=== PATIENT | female | born 1945 | race Caucasian/White ===

== ENCOUNTER → 2016-05-07 | Outpatient (CLI) | payer OTHER ==
[~2016-05-07] MED LIST: ALPR0.254 PO; ASPI81TA13 PO; CALC667C PO; DONETAB5 PO; DULO30CA PO; LEVO125T6 PO; LOSA25TA9 PO; METO25TA5 PO; OMEP20CA5 OR; SIMV-13 PO
[2016-05-07 10:29] LABS: Basophils # (auto) 0.1 uL; Basophils % (auto) 0.9 % (0.0-2.0); Eosinophils # (auto) 0.2 uL; Eosinophils % (auto) 3.8 % (0.0-7.0); Hematocrit 39.4 % (36.0-46.0); Hemoglobin 12.7 g/dL (12.2-16.2); Lymphocytes # (auto) 1.5 uL; Lymphocytes % (auto) 25.3 % (10.0-50.0); Mean Corpuscular Hemoglobin 30.6 pg (28.0-32.0); Mean Corpuscular Hgb Conc. 32.3 g/dL (32.0-36.0); Mean Corpuscular Volume 94.8 fL (80.0-100.0); Mean Platelet Volume 8.2 fL (7.4-10.4); Monocytes # (auto) 0.5 uL; Monocytes % (auto) 8.2 % (0.0-12.0); Neutrophils # (auto) 3.7 uL; Neutrophils % (auto) 61.8 % (37.0-80.0); Platelet Count (auto) 193 10^3/uL (140-450); Red Cell Distribution Width 13.2 % (11.6-16.0)
[2016-05-07 11:03] LABS: BUN/Creatinine Ratio 26.1; Bilirubin, Total 0.5 mg/dL (0.2-1.0); Calcium 9.3 mg/dL (8.5-10.1); Potassium 3.7 mmol/L (3.5-5.1); Total Protein 7.6 g/dL (6.4-8.2)
[2016-05-07 12:15] LABS: Urine Bilirubin Negative (Negative); Urine Blood Negative /uL (Negative); Urine Color Yellow (Yellow); Urine Glucose Normal (Normal); Urine Ketone Negative (Negative); Urine Mucus FEW (None Seen); Urine Nitrite Negative (Negative); Urine RBC 11 /hpf (0 - 4); Urine Squamous Epithelial Cell FEW /hpf (<5); Urine pH 5.5 (5.0-8.0)
== END | disposition home or self-care (01) ==
LOC: LAB 09:00
PROVIDERS: ATTEND Internal Medicine
DX: Z00.00 Encounter for general adult medical examination without abnormal findings (principal); E55.9 Vitamin D deficiency, unspecified
CPT/HCPCS: 36415; 80053; 80061; 81001; 82306; 82607; 84443; 85025; 86592

== ENCOUNTER 2016-06-16 08:51 | Emergency (ER) | payer OTHER ==
[~2016-06-16] VITALS: Ht 175.3 cm; Wt 68.9 kg
[2016-06-16 08:58] VITALS: BP 134/87
[2016-06-16] MEDS ORDERED: LACTULOSE 20Gm/30ML SOLN PO ONE (10:00)
== END 2016-06-16 10:30 | disposition home or self-care (01) ==
LOC: ER 08:59
DX: K59.00 Constipation, unspecified (principal); E78.5 Hyperlipidemia, unspecified; I10 Essential (primary) hypertension; E07.9 Disorder of thyroid, unspecified; Z87.440 Personal history of urinary (tract) infections; Z90.49 Acquired absence of other specified parts of digestive tract
CPT/HCPCS: 74022

== ENCOUNTER 2016-06-24 03:06 | Emergency (ER) | payer OTHER ==
[~2016-06-24] VITALS: Ht 175.3 cm; Wt 65.8 kg
[2016-06-24] MEDS ORDERED: SODIUM CHLORIDE 0.9% 1,000 ML IV ONE (07:22)
[2016-06-24 08:24] LABS: Urine Bilirubin Negative (Negative); Urine Blood Negative /uL (Negative); Urine Color Yellow (Yellow); Urine Glucose Normal (Normal); Urine Ketone Negative (Negative); Urine Nitrite Negative (Negative); Urine RBC 1 /hpf (0 - 4); Urine Squamous Epithelial Cell FEW /hpf (<5); Urine Urobilinogen Normal (Negative)
[2016-06-24 08:53] LABS: BUN/Creatinine Ratio 18.3; Calcium 8.7 mg/dL (8.5-10.1); Magnesium 2.3 mg/dL (1.6-2.6); Potassium 4.6 mmol/L (3.5-5.1)
[2016-06-24 09:15] LABS: Basophils # (auto) 0 uL; Basophils % (auto) 0.6 % (0.0-2.0); Eosinophils # (auto) 0.3 uL; Eosinophils % (auto) 5.8 % (0.0-7.0); Hematocrit 37.5 % (36.0-46.0); Hemoglobin 12.8 g/dL (12.2-16.2); Lymphocytes # (auto) 1.9 uL; Lymphocytes % (auto) 34.9 % (10.0-50.0); Mean Corpuscular Hgb Conc. 34.2 g/dL (32.0-36.0); Mean Corpuscular Volume 93.5 fL (80.0-100.0); Mean Platelet Volume 7.3 fL (7.4-10.4); Monocytes # (auto) 0.5 uL; Monocytes % (auto) 9.9 % (0.0-12.0); Neutrophils # (auto) 2.7 uL; Neutrophils % (auto) 48.8 % (37.0-80.0); Platelet Count (auto) 193 10^3/uL (140-450); Red Cell Distribution Width 13.2 % (11.6-16.0); White Blood Cell 5.5 10^3/uL (4.4-10.8)
[2016-06-24 09:20] VITALS: BP 116/74
[2016-06-24] MEDS ORDERED: FLEET MINERAL OIL ENEMA 133 ML PR ONE (10:15)
[2016-06-24] MEDS ORDERED: LACTULOSE 20Gm/30ML SOLN PO ONE (11:00)
== END 2016-06-24 11:30 | disposition home or self-care (01) ==
LOC: ER 03:08
DX: K59.00 Constipation, unspecified (principal); N39.0 Urinary tract infection, site not specified; E03.9 Hypothyroidism, unspecified; G30.9 Alzheimer's disease, unspecified; F02.80 Dementia in other diseases classified elsewhere, unspecified severity, without behavioral disturbance, psychotic disturbance, mood disturbance, and anxiety; E78.5 Hyperlipidemia, unspecified; I10 Essential (primary) hypertension; Z79.82 Long term (current) use of aspirin; Z79.899 Other long term (current) drug therapy
CPT/HCPCS: 36415; 74000; 80048; 81001; 83735; 84443; 85025; 96360; 96361; 99285; J7030

== ENCOUNTER → 2016-09-20 | Outpatient (CLI) | payer OTHER, MEDICARE ==
[~2016-09-20] MED LIST changes: -OMEP20CA5 OR; +OMEP20CA74 OR
[2016-09-20 13:23] LABS: Urine RBC None Seen /hpf (0 - 4)
[2016-09-20 13:59] LABS: Bilirubin, Total 0.7 mg/dL (0.2-1.0); Calcium 9.3 mg/dL (8.5-10.1); Total Protein 7.7 g/dL (6.4-8.2)
[2016-09-20 15:09] LABS: Urine Ca Oxalate Crystal FEW (None Seen)
[2016-09-20 15:13] LABS: Urine Color Orange (Yellow)
== END | disposition home or self-care (01) ==
LOC: LAB 12:18
PROVIDERS: ATTEND Internal Medicine
DX: I10 Essential (primary) hypertension (principal); E78.2 Mixed hyperlipidemia; E03.9 Hypothyroidism, unspecified
CPT/HCPCS: 36415; 80053; 81001; 84439; 84443; 84481; 85652; 86038; 86141

== ENCOUNTER → 2016-10-09 | Outpatient (CLI) | payer OTHER, MEDICARE | END | disposition home or self-care (01) | LOC: LAB 08:51 | PROVIDERS: ATTEND Internal Medicine | DX: D62 Acute posthemorrhagic anemia (principal) | CPT/HCPCS: 36415; 82565; 84520 ==

== ENCOUNTER 2016-10-17 04:43 | Inpatient (IN) | payer OTHER, MEDICARE ==
[~2016-10-17] VITALS: Ht 175.3 cm; Wt 67.6 kg
[2016-10-17 07:23] LABS: CONDITION Y; Hematocrit 39.3 % (36.0-46.0); Hemoglobin 13.8 g/dL (12.2-16.2); Mean Corpuscular Hemoglobin 32.5 pg (28.0-32.0); Mean Corpuscular Hgb Conc. 35.1 g/dL (32.0-36.0); Mean Corpuscular Volume 92.6 fL (80.0-100.0); Mean Platelet Volume 7.8 fL (7.4-10.4); Platelet Count (auto) 262 10^3/uL (140-450); Red Cell Distribution Width 12.9 % (11.6-16.0); SUSPECT SEE PRINTOUT; White Blood Cell 23.7 10^3/uL (4.4-10.8)
[2016-10-17 07:31] LABS: INR 1.08 (0.9-1.15); Partial Thromboplastin Time 23.1 sec (22.64-33.71); Prothrombin Time 11.8 sec (9.37-12.3)
[2016-10-17 07:40] LABS: Urine RBC None Seen /hpf (0 - 4)
[2016-10-17 07:50] LABS: Metamyelocytes % 0; Myelocytes % 0; Promyelocytes % 0; Reactive Lymphocytes 0
[2016-10-17 08:04] LABS: Albumin 3.7 g/dL (3.4-5.0); Anion Gap 12 (5-15); Aspartate Aminotransferase 26 U/L (15-37); BUN/Creatinine Ratio 22.8; Blood Urea Nitrogen 18 mg/dL (7-18); Calcium 8.8 mg/dL (8.5-10.1); Carbon Dioxide 22 mmol/L (21-32); Chloride 107 mmol/L (98-107); GFR African American 92 mL/min; GFR Non-African American 76 mL/min; Glucose 128 mg/dL (74-106); Potassium 3.8 mmol/L (3.5-5.1); Sodium 141 mmol/L (136-145)
[2016-10-17 08:04] LABS: Urine Bilirubin Negative (Negative); Urine Blood Negative /uL (Negative); Urine Color Yellow (Yellow); Urine Glucose Normal (Normal); Urine Hyaline Cast FEW /lpf (0 - 2); Urine Ketone Negative (Negative); Urine Mucus FEW (None Seen); Urine Nitrite Negative (Negative); Urine Squamous Epithelial Cell FEW /hpf (<5); Urine Urobilinogen Normal (Negative)
[2016-10-17 08:07] LABS: B-Type Natriuretic Peptide 88.21 pg/mL (0-100)
[2016-10-17] MEDS ORDERED: SODIUM CHLORIDE 0.9% 1,000 ML IV ONE ×2 (08:13→10:30)
[2016-10-17] MEDS ORDERED: PANTOPRAZOLE SODIUM 40 MG/10 ML VIAL IV ONE (08:15)
[2016-10-17 08:16] LABS: Alkaline Phosphatase 93 U/L (45-117); Bilirubin, Total 1.1 mg/dL (0.2-1.0); Total Protein 7.4 g/dL (6.4-8.2)
[2016-10-17 08:27] LABS: Platelet Estimate Adequate
[2016-10-17 08:28] LABS: Ovalocytes FEW
[2016-10-17] MEDS ORDERED: cefTRIAXone 1GM/50ML D5W 50 ML IV ONE (08:30)
[2016-10-17 08:35] LABS: Temperature: 24.1 C (20.0-25.0)
[2016-10-17] MEDS ORDERED: SERT-138 PO (10:06)
[2016-10-17] MEDS ORDERED: MORPHINE SULF INJ 2 MG/ML SYRINGE 1ML IV PRN (10:30)
[2016-10-17] MEDS ORDERED: TEMAZEPAM 15 MG CAP PO PRN (10:30)
[2016-10-17] MEDS ORDERED: PROMETHAZINE HCL 25 MG/ML 1ML IV PRN (10:30)
[2016-10-17] MEDS ORDERED: HYDROcodone-ACET 5/325MG TAB PO PRN (10:30)
[2016-10-17] MEDS ORDERED: ACETAMINOPHEN 500 MG TAB PO PRN (10:30)
[2016-10-17] MEDS ORDERED: PIPERACILLIN-TAZOB 3.375GM 100 ML IV ONE (10:30)
[2016-10-17] MEDS ORDERED: FAMOTIDINE (10MG/ML) 2ML VL IV SCH (10:30)
[2016-10-17] MEDS ORDERED: MILK OF MAGNESIA 30ML SUSP PO PRN (10:30)
[2016-10-17] MEDS ORDERED: LORazepam 0.5 MG TAB PO PRN (10:30)
[2016-10-17] MEDS ORDERED: MORPHINE SULFATE 4 MG/ML SYRG IV PRN (10:30)
[2016-10-17] MEDS ORDERED: NITROGLYCERIN 0.4 MG SL TAB SL PRN (10:30)
[2016-10-17] MEDS: SODIUM CHLORIDE 0.9% 1,000 ML IV SCH ×2 (11:11→21:30)
[2016-10-17 12:49] VITALS: BP 105/66
[2016-10-17] MEDS ORDERED: LORazepam 2MG/ML-1ML VIAL IV PRN (15:00)
[2016-10-17] MEDS ORDERED: PANTOPRAZOLE 40 MG TAB PO SCH (15:30)
[2016-10-17] MEDS ORDERED: HALOPERIDOL LACTATE 5 MG/ML INJ VIAL IV PRN (16:15)
[2016-10-17 16:59] VITALS: BP 117/69
[2016-10-17] MEDS: AZITHROMYCIN 500MG/D5W 250ML 250 ML IV ONE ×2 (17:15→22:30)
[2016-10-17] MEDS ORDERED: CALCIUM ACETATE 667 MG CAP PO SCH (18:00)
[2016-10-17] MEDS: PIPERACILLIN-TAZOB 3.375GM 100 ML IV SCH (18:34)
[2016-10-17 21:36] VITALS: BP 96/54
[2016-10-17] MEDS: DONEPEZIL HYDROCHLORIDE 5 MG TAB PO SCH ×2 (22:00→23:29)
[2016-10-17] MEDS: METOPROLOL TARTRATE 25 MG TAB PO SCH ×2 (22:00→23:29)
[2016-10-17] MEDS: ALPRAZolam 0.25 MG TAB PO SCH ×2 (22:00→23:29)
[2016-10-17] MEDS: ATORVASTATIN 20 MG TAB PO SCH ×2 (22:00→23:29)
[2016-10-18] MEDS: PIPERACILLIN-TAZOB 3.375GM 100 ML IV SCH (00:28)
[2016-10-18 04:53] VITALS: BP 147/79
[2016-10-18] MEDS ORDERED: LEVOTHYROXINE SODIUM 50 MCG TAB PO SCH (07:00)
[2016-10-18] MEDS ORDERED: DULoxetine HCL 30 MG CAP PO SCH (10:00)
[2016-10-18] MEDS ORDERED: ENOXAPARIN SOD 40 MG/0.4 ML SYRINGE SC SCH (10:00)
[2016-10-18] MEDS ORDERED: ASPirin-EC 81 mg tab PO SCH (10:00)
[2016-10-18] MEDS ORDERED: LOSARTAN POTASSIUM 25 MG TAB PO SCH (10:00)
[2016-10-18] MEDS ORDERED: AZITHROMYCIN 500MG/D5W 250ML 250 ML IV SCH (10:00)
[2016-10-18] MEDS ORDERED: SERTRALINE HCL 50 MG TAB PO SCH (10:00)
== END 2016-10-18 05:10 | disposition left against medical advice (07) | DRG 872 ==
LOC: ER 04:43 → TELE 04:44 → TELE-E-ADS 12:23 → TELE-WESTW 15:21
PROVIDERS: ADMIT Internal Medicine; ATTEND Internal Medicine
DX: A41.9 Sepsis, unspecified organism (principal); K57.92 Diverticulitis of intestine, part unspecified, without perforation or abscess without bleeding; N30.00 Acute cystitis without hematuria; E78.5 Hyperlipidemia, unspecified; F03.90 Unspecified dementia, unspecified severity, without behavioral disturbance, psychotic disturbance, mood disturbance, and anxiety; G62.9 Polyneuropathy, unspecified; R91.8 Other nonspecific abnormal finding of lung field; I70.90 Unspecified atherosclerosis; I10 Essential (primary) hypertension; J44.9 Chronic obstructive pulmonary disease, unspecified; Z82.49 Family history of ischemic heart disease and other diseases of the circulatory system; Z87.440 Personal history of urinary (tract) infections; Z90.49 Acquired absence of other specified parts of digestive tract; Z90.89 Acquired absence of other organs
CPT/HCPCS: 36415; 71010; 71250; 74176; 80053; 81001; 82150; 83605; 83690; 83880; 84484; 85007; 85027; 85610; 85652; 85730; 86141; 87040; 87086; 96361; 96365; 96375; C9113; J0696; J2543; J3490

== ENCOUNTER 2016-10-22 09:42 | Emergency (ER) | payer OTHER, MEDICARE ==
[~2016-10-22] VITALS: Ht 175.3 cm; Wt 64.4 kg
[~2016-10-22 09:42] MED LIST changes: +SERT-138 PO
[2016-10-22] MEDS ORDERED: DIPHENOXYLATE W/ATROPINE 2.5 MG TAB PO ONE (10:15)
[2016-10-22] MEDS ORDERED: SODIUM CHLORIDE 0.9% 1,000 ML IV ONE (10:15)
[2016-10-22 11:11] LABS: Albumin 3.7 g/dL (3.4-5.0); Alkaline Phosphatase 85 U/L (45-117); Anion Gap 8 (5-15); Aspartate Aminotransferase 30 U/L (15-37); BUN/Creatinine Ratio 15.4; Bilirubin, Total 0.7 mg/dL (0.2-1.0); Blood Urea Nitrogen 10 mg/dL (7-18); Calcium 9.3 mg/dL (8.5-10.1); Carbon Dioxide 25 mmol/L (21-32); Chloride 108 mmol/L (98-107); GFR African American 116 mL/min; GFR Non-African American 96 mL/min; Glucose 98 mg/dL (74-106); Sodium 141 mmol/L (136-145); Total Protein 7.7 g/dL (6.4-8.2)
[2016-10-22 11:40] LABS: Basophils # (auto) 0 uL; Basophils % (auto) 0.6 % (0.0-2.0); CONDITION Y; Eosinophils # (auto) 0.3 uL; Eosinophils % (auto) 4.3 % (0.0-7.0); Hematocrit 39.6 % (36.0-46.0); Hemoglobin 13.4 g/dL (12.2-16.2); Lymphocytes # (auto) 1.5 uL; Mean Corpuscular Hemoglobin 31.9 pg (28.0-32.0); Mean Corpuscular Volume 93.8 fL (80.0-100.0); Mean Platelet Volume 8.3 fL (7.4-10.4); Monocytes # (auto) 0.6 uL; Monocytes % (auto) 6.9 % (0.0-12.0); Neutrophils # (auto) 5.5 uL; Neutrophils % (auto) 69.2 % (37.0-80.0); Platelet Count (auto) 262 10^3/uL (140-450)
[2016-10-22 12:12] LABS: Urine Bilirubin Negative (Negative); Urine Blood Negative /uL (Negative); Urine Color Yellow (Yellow); Urine Glucose Normal (Normal); Urine Ketone Negative (Negative); Urine Mucus FEW (None Seen); Urine Nitrite Negative (Negative); Urine RBC 1 /hpf (0 - 4); Urine Squamous Epithelial Cell FEW /hpf (<5); Urine Urobilinogen Normal (Negative); Urine pH 6.5 (5.0-8.0)
[2016-10-22 12:27] VITALS: BP 135/71
== END 2016-10-22 12:43 | disposition home or self-care (01) ==
LOC: ER 09:42
DX: R19.7 Diarrhea, unspecified (principal); E07.89 Other specified disorders of thyroid; Z90.49 Acquired absence of other specified parts of digestive tract; Z90.89 Acquired absence of other organs; Z79.899 Other long term (current) drug therapy
CPT/HCPCS: 36415; 80053; 81001; 84484; 85025; 96360; 96361; 99285; J7030

== ENCOUNTER → 2016-11-13 | Outpatient (CLI) | payer OTHER ==
[2016-11-13 15:38] LABS: Urine RBC None Seen /hpf (0 - 4)
[2016-11-13 16:54] LABS: Urine Bilirubin Negative (Negative); Urine Blood Negative /uL (Negative); Urine Ca Oxalate Crystal MANY (None Seen); Urine Color Orange (Yellow); Urine Glucose Normal (Normal); Urine Hyaline Cast MANY /lpf (0 - 2); Urine Ketone Negative (Negative); Urine Mucus FEW (None Seen); Urine Nitrite Negative (Negative); Urine Squamous Epithelial Cell FEW /hpf (<5); Urine pH 5.5 (5.0-8.0)
== END | disposition home or self-care (01) ==
LOC: LAB 15:29
PROVIDERS: ATTEND Internal Medicine
DX: N39.0 Urinary tract infection, site not specified (principal); I10 Essential (primary) hypertension; Z90.49 Acquired absence of other specified parts of digestive tract
CPT/HCPCS: 81001; 87086